=== PATIENT | male | born 1940 | race Caucasian/White ===

== ENCOUNTER 2022-02-12 13:50 | Emergency (ER) | payer MEDICARE, SELFPAY ==
--- NOTE | 2022-02-12 13:52 | ED.BACK ---
HPI - Back Pain/Injury General Chief Complaint: Back Pain/Injury Stated Complaint: back pain Time Seen by Provider: 02/12/22 14:32 Source: patient and RN notes reviewed Mode of arrival: ambulatory Limitations: no limitations History of Present Illness HPI Narrative: 81-year-old male presents concern for left low back pain for 2-3 days. Reports he was lifting heavy objects in his garage several days ago. Reports he then had a long car ride from [place]. He reports he has a history of degenerative disc disease, he has had back pain before. Reports walking makes the back pain better. He denies loss of bowel or bladder dysfunction, perineal anesthesia, abdominal pain, fever, weakness in any extremity. Reports he has been taking ibuprofen without relief MD elicited complaint: back pain Related Data Home Medications Medication Instructions Recorded Confirmed benazepril 10 mg tablet 10 mg DIRECTED 02/12/22 02/12/22 fenofibrate nanocrystallized 145 145 mg PO DIRECTED 02/12/22 02/12/22 mg tablet finasteride 5 mg tablet 5 mg PO DIRECTED 02/12/22 02/12/22 gabapentin 600 mg tablet 600 mg DIRECTED 02/12/22 02/12/22 hydrochlorothiazide 25 mg tablet 25 mg DIRECTED 02/12/22 02/12/22 levothyroxine 112 mcg tablet 112 mcg DIRECTED 02/12/22 02/12/22 omeprazole 40 mg capsule,delayed 40 mg DIRECTED 02/12/22 02/12/22 release ropinirole 1 mg tablet 1 mg DIRECTED 02/12/22 02/12/22 simvastatin 20 mg tablet 20 mg DIRECTED 02/12/22 02/12/22 tamsulosin 0.4 mg capsule 0.4 mg PO DIRECTED 02/12/22 02/12/22 Allergies Allergy/AdvReac Type Severity Reaction Status Date / Time hydrocodone Allergy Mild Itching Verified 02/12/22 14:36 tramadol Allergy Mild Itching Verified 02/12/22 14:36 Review of Systems Review of Systems: CONSTITUTIONAL: Denies malaise, chills, sweats, or fever. CARDIOVASCULAR: Denies chest pain, palpitations, or edema. RESPIRATORY: Denies cough or dyspnea. GASTROINTESTINAL: Denies abdominal pain, nausea, vomiting, diarrhea, loss of bowel function GENITOURINARY: Denies dysuria, hematuria, frequency, loss of bladder function. SKIN: Denies rash or itching. MUSCULOSKELETAL: Reports left low back pain NEUROLOGIC: Denies numbness, weakness, or headache. All systems reviewed & are unremarkable except as noted in HPI and below PMFSH Comments At time of signature, agree with nursing past medical, surgical, social and family history. There is no relevant family history pertinent to the presenting complaint Exam Narrative: GENERAL: Well-appearing, well-nourished, and in no acute distress. HEAD: Normocephalic, atraumatic. EYES: PERRLA and EOMI. NECK: Supple. No lymphadenopathy. CHEST: Clear to auscultation. No respiratory distress. HEART: Regular rate and rhythm. Distal pulses palpable and equal, cap refill <3 seconds ABDOMEN: Soft, nontender, nondistended, normal active bowel sounds, no palpable or pulsatile masses. No CVA tenderness MUSCULOSKELETAL: Normal range of motion and strength in all extremities; 5/5 strength with hip flexion and extension, dorsiflexion and extension, knee flexion and extension, plantar flexion and extension. Normal sensation in dermatomal distributions with sensitivity to light touch and pain. No midline back tenderness to palpation. No paraspinal tenderness. Transfers from lying to sitting to standing. SKIN: Warm, dry, no rash. No ecchymosis, erythema, open wounds to back. NEURO: No focal deficits. Alert and oriented x3. Reflexes intact. Normal gait. PSYCH: Normal mood and affect Course Course Emergency Course: Patient is aware of diagnosis, understands and agrees to treatment plan. Anticipatory guidance given. Patient agrees to follow-up as directed and is aware of reasons to seek care at the emergency department. Portions of this record may have been created with voice recognition software Level of Care: Express Care Visit Vital Signs Vital signs: Vital Signs Temperature
[2022-02-12 14:08] VITALS: BP 159/82; PULSE 67; RESP 16; TEMP 37.2; O2SAT 96
== END 2022-02-12 14:55 | disposition home or self-care (01) ==
PROVIDERS: Emergency Provider Nurse Practitioner
DX: M54.50 Low back pain, unspecified (principal); E78.00 Pure hypercholesterolemia, unspecified; I10 Essential (primary) hypertension; E03.9 Hypothyroidism, unspecified; Z96.612 Presence of left artificial shoulder joint; Z96.611 Presence of right artificial shoulder joint; Z96.21 Cochlear implant status
CPT/HCPCS: 99203; G0463